=== PATIENT | male | born 1995 | race Caucasian/White ===

== ENCOUNTER 2017-02-22 20:10 | Emergency (ER) | payer MEDICAID ==
[~2017-02-22] VITALS: Ht 172.7 cm; Wt 101.1 kg
[~2017-02-22 20:10] MED LIST: ACET1TAB40 PO; ACET500C5 PO; ASPI1TAB2 PO; HYDR-3010 PO; IBUP-1542 PO; PENI500T PO; POLY10DR19 LEFT EYE
[2017-02-22 20:14] VITALS: Ht 172.7 cm; Wt 101.1 kg
--- NOTE | 2017-02-22 20:47 | ERD ---
ER Documentation Chief Complaint Chief Complaint fever x 1 day, headache HPI This patient is a 21-year-old male with past medical history of fatty liver and headaches presenting to the emergency department with complaints of headache and body aches which began suddenly last night. Associated symptoms include fever and nausea. Symptoms are intermittent but worsening. He denies sick contacts. He did have a flu shot this year. He denies neck pain, vomiting, diarrhea, urinary symptoms, or other symptoms at this time. ROS All systems reviewed and are negative except as per history of present illness. Medications Home Meds Active Scripts Ibuprofen* (Motrin*) 600 Mg Tab, 600 MG PO Q6, #30 TAB Prov:MARIA DOLORES GARZA PA-C 02/22/17 Amoxicillin* (Amoxicillin*) 500 Mg Cap, 500 MG PO TID for 10 Days, #30 CAP Prov:MARIA DOLORES GARZA PA-C 02/22/17 Aspirin/Acetaminophen/Caffeine (Excedrin Tablet) 1 Tab Tablet, 1 TAB PO Q6, #30 TAB Prov:LYNDSEY SANCHES PA-C 11/14/15 Acetaminophen-Codeine* (Acetaminophen-Cod #3*) 300-30 Mg Tab, 1 TAB PO Q4H Y for PAIN, #15 TAB Prov:LYNDSEY SANCHES PA-C 11/14/15 Acetaminophen-Codeine* (Acetaminophen-Cod #3*) 300-30 Mg Tab, 1 TAB PO Q4H Y for PAIN, #10 TAB Prov:GLENNY BHATT MD 10/31/15 Ibuprofen* (Motrin*) 600 Mg Tab, 600 MG PO Q6, #20 TAB Prov:GLENNY BHATT MD 10/31/15 Hydroxyzine Hcl* (Hydroxyzine Hcl*) 10 Mg Tablet, 10 MG PO Q6H Y for ANXIETY, # 30 TAB Prov:KIMBERLEE KOLB PA-C 09/12/15 Acetaminophen* (Tylophen*) 500 Mg Capsule, 1 CAP PO Q6H Y for PAIN AND OR ELEVATED TEMP, #20 CAP Prov:CLAYTON LINARES PA-C 06/24/15 Penicillin V Potassium* (Penicillin V K*) 500 Mg Tab, 500 MG PO BID for 10 Days , TAB Prov:CLAYTON LINARES PA-C 06/24/15 Polymyxin B Sulfate-TMP* (Polymyxin B-TMP Eye Drops*) 10 Ml Drops, 1 DROP LEFT EYE QID for 7 Days, EA Prov:MIKEL MIRANDA TRACEY AbelPiero YEUNG 02/10/15 Reported Medications [none] Unknown Strength No Conflict Check 02/10/15 Allergies Allergies: Coded Allergies: No Known Allergy (Unverified , 10/22/14) PMhx/Soc Medical and Surgical Hx: pt denies Medical Hx, pt denies Surgical Hx History of Surgery: No Anesthesia Reaction: No Hx Neurological Disorder: No Hx Respiratory Disorders: No Hx Cardiac Disorders: No Hx Psychiatric Problems: No Hx Miscellaneous Medical Probl: No Hx Alcohol Use: No Hx Substance Use: No Hx Tobacco Use: No Physical Exam Vitals Vital Signs Date Time Temp Pulse Resp B/P Pulse Ox O2 Delivery O2 Flow Rate FiO2 02/22/17 22:02 99.1 02/22/17 20:14 102.5 139 20 136/72 98 Physical Exam Const: Nontoxic, well-appearing male in no acute distress. Head: Atraumatic Eyes: Normal Conjunctiva ENT: Normal External Ears, Nose and Mouth. There is bilateral tonsillar hypertrophy, erythema and significant exudate present. There is no uvular deviation. No hot potato voice. No trismus. The airway is clear. Neck: Full range of motion..~ No meningismus. There is positive tender anterior cervical lymphadenopathy bilaterally. Resp: Clear to auscultation bilaterally Cardio: Regular rate and rhythm, no murmurs Abd: Soft, mild midepigastric tenderness palpation but no rebound tenderness or guarding, no [place]'s point tenderness, non distended. Normal bowel sounds Skin: No petechiae or rashes Ext: No cyanosis, or edema Neur: Awake and alert Psych: Normal Mood and Affect Results 24 hrs Current Medications Medications (Trade) Dose Ordered Sig/Kedar Route PRN Reason Start Time Stop Time Status Last Admin Dose Admin Acetaminophen/ Hydrocodone Bitart ([place] (5/325)) 1 tab ONCE ONCE PO 02/22/17 21:00 02/22/17 21:01 DC 02/22/17 20:48 Ibuprofen (Motrin) 600 mg ONCE ONCE PO 02/22/17 21:00 02/22/17 21:01 DC 02/22/17 20:48 Procedures/MDM 21-year-old male presents to the emergency department with exudative pharyngitis. Patient has tender cervical lymphadenopathy, temperature 102.5F, and tonsillar exudate, meeting the Cent[facility] criteria for empirical treatment of suspected strep pharyngitis. Patient is stable for outpatient management with a prescription for amoxicillin. He agrees a discharge plan a diagnosis. The patient was treated in the department with antipyretics and pain medication and he was feeling significantly improved prior to discharge. Low suspicion for sepsis, peritonsillar abscess, or other life-threatening illness. Patient advised to follow-up with his primary care physician within the next 1-2 days and return immediately for any new or worsening symptoms. Temperature reduced to 99.1F prior to discharge. Departure Diagnosis: Primary Impression: Exudative pharyngitis Condition: Fair Patient Instructions: Pharyngitis, Strep (Presumed) Referrals: [facility] MARIA DOLORES GARZA PA-C Feb 22, 2017 20:47 MARIA DOLORES GARZA PA-C Feb 22, 2017 20:47
[2017-02-22] MEDS ORDERED: IBUP-1542 PO (20:54)
[2017-02-22] MEDS ORDERED: AMOX500C2 PO (20:54)
[2017-02-22] MEDS ORDERED: IBUPROFEN 600 MG TAB PO ONE (21:00)
[2017-02-22] MEDS ORDERED: HYDROCODONE/APAP (5/325) TAB PO ONE (21:00)
[2017-02-22 22:02] VITALS: TEMP 99.1
== END 2017-02-22 22:03 | disposition home or self-care (01) ==
LOC: FTE 20:10
DX: J02.9 Acute pharyngitis, unspecified (principal); Z79.82 Long term (current) use of aspirin
CPT/HCPCS: Z7502; Z7610; 99283

== ENCOUNTER 2017-06-08 02:56 | Emergency (ER) | END 2017-06-08 08:15 | disposition home or self-care (01) ==

== ENCOUNTER 2017-06-27 11:44 | Emergency (ER) | END 2017-06-27 12:29 | disposition home or self-care (01) ==

== ENCOUNTER 2018-04-14 07:04 | Emergency (ER) | payer MEDICAID ==
[~2018-04-14] VITALS: Ht 180.3 cm; Wt 93.9 kg
[~2018-04-14 07:04] MED LIST changes: +ALBU18HF INHALATION; +AMOX500C2 PO; +AZIT250T PO; +CETI10CA PO; +FLUT9.9S NASAL; +GUAI5SYR2 PO; -HYDR-3010 PO; +HYDR-3029 PO; +HYDR-4011 PO; +ONDA4TAB14 PO
[2018-04-14 07:05] VITALS: Ht 180.3 cm; Wt 93.9 kg
--- NOTE | 2018-04-14 07:45 | ERD ---
ER Documentation Chief Complaint Chief Complaint epigastric pain and nausea x 2 days HPI 22-year-old male presents with complaint of epigastric pain starting 2 days ago. States the pain is worse at night. States he has a history of GERD. Denies shortness of breath, fevers, chest pain, dyspnea, nausea, vomiting, diarrhea. Denies allergies. Denies medications. Denies surgeries. Denies alcohol, tobacco, drug use. Up to date on vaccines. ROS All systems reviewed and are negative except as per history of present illness. Medications Home Meds Active Scripts Famotidine* (Pepcid*) 20 Mg Tablet, 20 MG PO BID for GERD for 14 Days, #28 TAB Prov:MARIA DOLORES TY 04/14/18 Fluticasone Propionate (Flonase Allergy Relief) 9.9 Ml [place].susp, 2 SPRAY NASAL DAILY, #1 BOTTLE TO EACH NOSTRIL Prov:JARED FARNSWORTH PA-C 06/27/17 Cetirizine Hcl* (Zyrtec*) 10 Mg Capsule, 10 MG PO DAILY, #14 TAB.CHEW Prov:JARED FARNSWORTH PA-C 06/27/17 Guaifenesin-Dextromethorphan* (Robitussin* DM) 100MG/10MG/5ML Syrup, 10 ML PO Q6H PRN for COUGH for 5 Days, ML Prov:JARED FARNSWORTH PA-C 06/27/17 Albuterol Sulfate* (Ventolin HFA*) 18 Gm Hfa.aer.ad, 2 PUFF INHALATION Q4H, #1 INHALER Prov:JARED FARNSWORTH PA-C 06/27/17 Azithromycin* (Zithromax*) 250 Mg Tablet, 250 MG PO .ALESSIA DIRECTED, #6 TAB TAKE 500 MG (2 TABS) THE FIRST DAY THEN 250 MG (1 TAB) DAYS 2-5 Prov:JARED FARNSWORTH PA-C 06/27/17 Ondansetron (Ondansetron Odt) 4 Mg Tab.rapdis, 4 MG PO Q6H PRN for NAUSEA AND/OR VOMITING, #20 TAB Prov:LYNDSEY SANCHES PA-C 06/08/17 Hydrocodone/Acetaminophen ([place] 5-325 Tablet) 1 Each Tablet, 1 TAB PO Q6H PRN for PAIN, #20 TAB Prov:LYNDSEY SANCHES PA-C 06/08/17 Ibuprofen* (Motrin*) 600 Mg Tab, 600 MG PO Q6, #30 TAB Prov:MARIA DOLORES GARZA PA-C 02/22/17 Amoxicillin* (Amoxicillin*) 500 Mg Cap, 500 MG PO TID for 10 Days, #30 CAP Prov:MARIA DOLORES GARZA PA-C 02/22/17 Aspirin/Acetaminophen/Caffeine (Excedrin Tablet) 1 Tab Tablet, 1 TAB PO Q6, #30 TAB Prov:LYNDSEY SANCHES PA-C 11/14/15 Acetaminophen-Codeine* (Acetaminophen-Cod #3*) 300-30 Mg Tab, 1 TAB PO Q4H PRN for PAIN, #15 TAB Prov:LYNDSEY SANCHES PA-C 11/14/15 Acetaminophen-Codeine* (Acetaminophen-Cod #3*) 300-30 Mg Tab, 1 TAB PO Q4H PRN for PAIN, #10 TAB Prov:GLENNY BHATT MD 10/31/15 Ibuprofen* (Motrin*) 600 Mg Tab, 600 MG PO Q6, #20 TAB Prov:GLENNY BHATT MD 10/31/15 Hydroxyzine Hcl* (Hydroxyzine Hcl*) 10 Mg Tablet, 10 MG PO Q6H PRN for ANXIETY, #30 TAB Prov:KIMBERLEE KOLB PA-C 09/12/15 Acetaminophen* (Tylophen*) 500 Mg Capsule, 1 CAP PO Q6H PRN for PAIN AND OR ELEVATED TEMP, #20 CAP Prov:CLAYTON LINARES PA-C 06/24/15 Penicillin V Potassium* (Penicillin V K*) 500 Mg Tab, 500 MG PO BID for 10 Days, TAB Prov:CLAYTON LINARES PA-C 06/24/15 Polymyxin B Sulfate-TMP* (Polymyxin B-TMP Eye Drops*) 10 Ml Drops, 1 DROP LEFT EYE QID for 7 Days, EA Prov:MIKEL MIRANDA NP 02/10/15 Reported Medications [none] Unknown Strength No Conflict Check 02/10/15 Allergies Allergies: Coded Allergies: No Known Allergy (Unverified , 06/08/17) PMhx/Soc History of Surgery: No Anesthesia Reaction: No Hx Neurological Disorder: No Hx Respiratory Disorders: No Hx Cardiac Disorders: No Hx Psychiatric Problems: No Hx Miscellaneous Medical Probl: No Hx Alcohol Use: No Hx Substance Use: Yes (marijuana) Hx Tobacco Use: No FmHx Family History: No diabetes, No coronary disease, No other Physical Exam Vitals Vital Signs Date Temp Pulse Resp B/P (MAP) Pulse Ox O2 O2 Flow FiO2 Time Delivery Rate 04/14/18 97.4 72 19 131/77 100 07:05 (95) Physical Exam General: Well developed, well nourished. No acute distress. Heart: RR w/o murmur, rubs, or gallops. Lungs: Clear to auscultation bilaterally w/o wheezes, crackles, rhonchi. Symmetric rise and fall. Equal breath sounds. Abdomen: Right upper quadrant tenderness to palpation with positive Dasilva's. Left lower quadrant tenderness to palpation. Back: No CVA tenderness. Psych: Normal mood and affect. Result Diagram: 04/14/18 0754 04/14/18 0754 Results 24 hrs Laboratory Tests Test 04/14/18 07:54 White Blood Count 11.9 10^3/ul Red Blood Count 4.94 10^6/ul Hemoglobin 15.0 g/dl Hematocrit 45.1 % Mean Corpuscular Volume 91.3 fl Mean Corpuscular Hemoglobin 30.4 pg Mean Corpuscular Hemoglobin Concent 33.3 g/dl Red Cell Distribution Width 12.7 % Platelet Count 268 10^3/UL Mean Platelet Volume 9.8 fl Immature Granulocytes % 0.700 % Neutrophils % 74.9 % Lymphocytes % 19.0 % Monocytes % 4.6 % Eosinophils % 0.5 % Basophils % 0.3 % Nucleated Red Blood Cells % 0.0 /100WBC Immature Granulocytes # 0.080 10^3/ul Neutrophils # 8.9 10^3/ul Lymphocytes # 2.3 10^3/ul Monocytes # 0.6 10^3/ul Eosinophils # 0.1 10^3/ul Basophils # 0.0 10^3/ul Nucleated Red Blood Cells # 0.0 10^3/ul Urine Color YELLOW Urine Clarity CLEAR Urine pH 8.0 Urine Specific [place] 1.017 Urine Ketones NEGATIVE mg/dL Urine Nitrite NEGATIVE mg/dL Urine Bilirubin NEGATIVE mg/dL Urine Urobilinogen NEGATIVE mg/dL Urine Leukocyte Esterase NEGATIVE Ana/ul Urine Hemoglobin NEGATIVE mg/dL Urine Glucose NEGATIVE mg/dL Urine Total Protein NEGATIVE mg/dl Sodium Level 144 mmol/L Potassium Level 4.3 mmol/L Chloride Level 102 mmol/L Carbon Dioxide Level 29 mmol/L Anion Gap 13 Blood Urea Nitrogen 9 mg/dl Creatinine 0.67 mg/dl Est Glomerular Filtrat Rate mL/min > 60 mL/min Glucose Level 111 mg/dl Calcium Level 10.1 mg/dl Total Bilirubin 1.3 mg/dl Direct Bilirubin 0.00 mg/dl Indirect Bilirubin 1.3 mg/dl Aspartate Amino Transf (AST/SGOT) 26 IU/L Alanine Aminotransferase (ALT/SGPT) 30 IU/L Alkaline Phosphatase 81 IU/L Troponin I < 0.012 ng/ml Total Protein 8.6 g/dl Albumin 5.0 g/dl Globulin 3.60 g/dl Albumin/Globulin Ratio 1.38 Lipase 43 U/L Current Medications Medications Dose Sig/Kedar Start Time Status Last (Trade) Ordered Route PRN Stop Time Admin Dose Reason Admin 40 ml ONCE STAT 04/14/18 DC 04/14/18 Miscellaneous PO 08:58 09:02 Medication 04/14/18 08:59 (Gi Cocktail (2)) [place]/ 2 tab ONCE STAT 04/14/18 DC 04/14/18 Phenobarbital PO 08:58 09:02 () 04/14/18 08:59 Procedures/MDM DIAGNOSTIC IMAGING REPORT Patient: AVINASH SAMUEL : 1995 Age: 22 Sex: M MR #: [id number] DOS: 04/14/18 0735 Ordering MD: MARIA DOLORES TY Location: [facility] Room/Bed: PROCEDURE: US Abdomen. CLINICAL INDICATION: abdominal pain TECHNIQUE: Multiple real-time images were acquired of the patient's right upper quadrant abdomen and retroperitoneum utilizing a high resolution transducer. COMPARISON: 06/08/17 FINDINGS: The liver demonstrates increased echogenicity. The liver is normal in size and no focal solid lesions are seen. The liver measures 15.8 cm in length. The portal vein is patent with normal direction of flow. No intrahepatic biliary dilatation is seen. No gallstones are identified within the gallbladder. There is no pericholecystic fluid or gallbladder wall thickening. The common bile duct measures 4 mm in maximal dimension. The visualized portions of the pancreas are unremarkable. The tail of the pa ncreas is not seen. No free fluid is identified. The right kidney is normal in size, and demonstrate normal echogenicity and cortical thickness. The right kidney measures 11.4 cm in long dimension. There is no evidence of hydronephrosis. There are no kidney stones. RPTAT: AA IMPRESSION: Fatty infiltration of the liver. No evidence of gallstones. .Brad Haile MD, Date Time Electronically viewed and signed by .Brad Haile MD, on 04/14/2018 08:14 .S/ CC: MARIA DOLORES TY [id number] DIAGNOSTIC IMAGING REPORT Patient: AVINASH SAMUEL : 1995 Age: 22 Sex: M MR #: [id number] DOS: 04/14/18 0735 Ordering MD: MARIA DOLORES TY Location: [facility] Room/Bed: PROCEDURE: XR Chest. CLINICAL INDICATION: chest pain TECHNIQUE: Single frontal view of the chest was obtained COMPARISON: 09/12/15 FINDINGS: The heart and mediastinum are within normal limits. The lungs are clear. There is no pleural effusion or pneumothorax. RPTAT: AA IMPRESSION: No acute disease. .Brad Haile MD, Date Time Electronically viewed and signed by .Brad Haile MD, on 04/14/2018 08:14 .S/ CC: MARIA DOLORES TY [id number] EKG: Rate/Rhythm: Normal Sinus Rhythm QRS, ST, T-waves: No changes consistent w/ acute ischemia Impression: No evidence of ischemia or arrhythmia ER Course: CBC, CMP, UA, Lipase, ECG, Troponin, CXR, Gallbladder US - All WNL. GI cocktail given. MDM: 22-year-old male presents with complaint of epigastric pain starting 2 days ago. States the pain is worse at night. States he has a history of GERD. Denies shortness of breath, fevers, chest pain, dyspnea, nausea, vomiting, diarrhea. Given the location of the pain, I wanted to rule out cardiac etiology. Therefore EKG and troponins were ordered. Both within normal limits. In addition I ordered a chest x-ray to rule out lung pathology as a cause of the pain. CXR within normal limits. Standard labs were ordered all within n ormal limits. Patient had positive Dasilva's on exam along with right upper quadrant tenderness to palpation, therefore ultrasound of gallbladder was ordered. Results within normal limits. Based on patient history most likely etiology of patient's pain is gastritis versus GERD. Patient given GI cocktail in ED as well as Rx for Pepcid. I told patient to take Pepcid for 2 weeks and see if the pain goes away. I have low suspicion for pancreatitis, AAA, aortic dissection, PE, acute coronary syndrome. Patient discharged with strict ER precautions. Patient advised to follow up with PMD. All questions answered at discharge. Departure Diagnosis: Primary Impression: Epigastric pain Additional Impression: GERD (gastroesophageal reflux disease) Esophagitis presence: without esophagitis Qualified Codes: K21.9 - Gastro- esophageal reflux disease without esophagitis Condition: Aneudy MARIA DOLORES TY Apr 14, 2018 07:45
[2018-04-14] MEDS ORDERED: FAMO-96 PO (08:54)
[2018-04-14] MEDS ORDERED: BELLADONNA/PHENOBARBITAL TAB PO STA (08:58)
[2018-04-14] MEDS ORDERED: LIDOCAINE/MYLANTA 40 ML BTL PO STA (08:58)
== END 2018-04-14 09:09 | disposition home or self-care (01) ==
LOC: FTE 07:04
DX: K21.9 Gastro-esophageal reflux disease without esophagitis (principal); Z87.891 Personal history of nicotine dependence
CPT/HCPCS: 71045; 76705; 80053; 81003; 83690; 84484; 85025; 93005; Z7610; 36415